=== PATIENT | male | born 2000 | race Caucasian/White ===

== ENCOUNTER 2025-01-29 14:28 | Outpatient (CLI) | payer BC, SELFPAY ==
[2025-01-29 14:59] LABS: Hemoglobin* 15.5 gm/dL (13.5-17.5)
== END 2025-01-29 14:29 | disposition home or self-care (01) ==
PROVIDERS: Visit Provider Family Medicine
DX: R53.83 Other fatigue (principal)
CPT/HCPCS: 36415; 82728; 85018